=== PATIENT | female | born 1965 | race Caucasian/White ===

== ENCOUNTER 2022-07-14 08:15 | Outpatient (CLI) | payer OTHER, SELFPAY ==
[2022-07-14 18:47] LABS: Alanine Aminotransferase 31 U/L (6-35); Albumin Level 4.2 g/dL (3.5-5.1); Alkaline Phosphatase 67 U/L (38-126); Anion Gap 6 mmol/L (8-16); Aspartate Amino Transferase 43 U/L (14-36); Bilirubin,Total 0.6 mg/dL (0.2-1.3); Blood Urea Nitrogen 12 mg/dL (7-17); Calcium 8.8 mg/dL (8.4-10.2); Carbon Dioxide 29 mmol/L (22-30); Chloride 102 mmol/L (98-107); Cholesterol 136 mg/dL (0-200); Estimated Glomerular Filt Rate > 60; Glucose 69 mg/dL (65-110); HDL Direct 50 mg/dL; Potassium 3.9 mmol/L (3.4-5.0); Sodium 137 mmol/L (137-145); Triglycerides 58 mg/dL (<150)
[2022-07-14 18:58] LABS: LDL Cholesterol Direct 64 mg/dL
[2022-07-14 19:20] LABS: Hemoglobin A1C 5.5 % (<5.7)
[2022-07-14 19:59] LABS: Creatinine Urine 101.9 mg/dL
[2022-07-14 20:02] LABS: MALB Creatinine Ratio 16.5 mg/g (0-30); Microalbumin Urine Random 16.8 mg/L (0-16.7)
== END 2022-07-14 08:16 | disposition home or self-care (01) ==
LOC: ANHGOSHLAB 08:16
PROVIDERS: PCP Emergency Medicine; Visit Provider Emergency Medicine
DX: R03.0 Elevated blood-pressure reading, without diagnosis of hypertension (principal); Z00.00 Encounter for general adult medical examination without abnormal findings
CPT/HCPCS: 36415; 80053; 80061; 82043; 83036

== ENCOUNTER 2022-09-14 10:12 | Outpatient (CLI) | payer OTHER, SELFPAY ==
[2022-09-14 11:51] LABS: Toxigenic C. Diff NEGATIVE (NEGATIVE)
== END 2022-09-14 10:13 | disposition home or self-care (01) ==
LOC: ANHLAB 10:13
PROVIDERS: PCP Emergency Medicine; Visit Provider Nurse Practitioner Family
DX: R19.7 Diarrhea, unspecified (principal)
CPT/HCPCS: 87045; 87177; 87209; 87427; 87493

== ENCOUNTER 2025-03-26 22:02 | Emergency (ER) | payer OTHER, SELFPAY ==
--- NOTE | ~2025-03-26 | CT_ITS ---
CT HEAD NON-CONTRAST Clinical History: confusion Comparison: None Technique: Unenhanced axial images skull base to vertex Coronal, sagittal reformats CT images acquired with automatic exposure control for dose reduction DLP: 681 mGy-cm Findings: Sulci, ventricles: Unremarkable. No intracerebral hemorrhage. No evidence acute territorial infarct. No mass effect, midline shift. Bony calvarium intact. Visualized paranasal sinuses: Clear. Mastoid air cells: Clear. Right parietal scalp contusion. IMPRESSION: 1. No acute intracranial findings. Reviewed, dictated and finalized at location R. VERY COLLECTOR
--- OUTSIDE RECORDS SUMMARY | 2025-03-26 22:04 | XMS_ITS | Clinical Summary ---
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
--- OUTSIDE RECORDS SUMMARY | 2025-03-26 22:04 | XMS_ITS | Encounter Summary ---
Author Organization [facility] Address 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
--- OUTSIDE RECORDS SUMMARY | 2025-03-26 22:04 | XMS_ITS | Clinical Summary ---
Author Organization [facility] Address [address] [place] [address] Care Team Providers Care Contact Lens Technician Name Role Phone Mavis Gipson MD Unavailable Mi Escoto MD Primary Care Provider + Araceli Acuña MD Unavailable [phone] Allergies No known active allergies Medications ALPRAZolam (XANAX) 0.25 mg tablet Take 1 tablet (0.25 mg total) by mouth nightly as needed for anxiety. 30 tablet 9 Active mv-mn/folic ac/calcium/vit K1 (WOMEN'S 50 PLUS MULTIVITAMIN ORAL) Take 1 tablet/capsu le by mouth daily Active HAIR, SKIN AND NAILS, BIOTIN, ORAL Take 1 tablet/capsu le by mouth daily Active Active Problems Problem Noted Date Diagnosed Date Family history of colon cancer 09/13/2022 History of colon polyps 09/13/2022 Fecal urgency 09/13/2022 Actinic keratosis 06/13/2021 Routine general medical exam ination at a health care facility 12/22/2019 Regular check-up 12/12/2018 Assessment & Plan (03/03/2021 3:13 PM CDT): We discussed the DASH diet Excessive cerumen in both ear canals 12/12/2018 Assessment & Plan (12/12/2018 3:27 PM CDT): Flush and pluck Immunizations Immunization Administration Dates Next Due Influenza, Quadrivalent, Rec ombinant, Egg Free, Preservative Free, Intramuscular 03/03/2021 Influenza, Quadrivalent, Spl it, Preservative Free, Intramuscular 03/04/2020 Influenza, Trivalent, IM (MDV) 04/15/2017 Tdap 12/22/2019 Surgical History Surgery Date Site/Laterality Comments VAGINAL DELIVERY 1993, 1997 Medical History Medical History Date Comments Pneumonia 09/2014 Menopause ovarian failure Family History Medical History Relation Name Comments Stroke Father Stroke; Colon cancer Mother Cancer, colon; Cause of : Cancer, colon Breast cancer Neg Hx Deep vein thrombosis Neg Hx Ovarian cancer Neg Hx Uterine cancer Neg Hx Relation Name Status Comments Father (Age 82) Mother (Age 50) Social History Tobacco Use Types Packs/Day Years Used Date Smoking Tobacco: Never Smokeless Tobacco: Never Alcohol Use Standard Drinks/Week Comments Yes 0 (1 standard drink = 0.6 oz pur e alcohol) Humiliation, Afraid, Rape, and Kick questionnair e Answer Date Recorded Within the last year, have y ou been afraid of your partner or ex-partner? No 01/14/2020 Within the last year, have y ou been humiliated or emotionally abused in other ways by your partner or ex-partner? No Within the last year, have y ou been kicked, hit, slapped, or otherwise physically hurt by your partner or ex-partner? No 01/14/2020 Within the last year, have y ou been raped or forced to have any kind of sexual activity by your partner or ex-partner? No 01/14/2020 Social Connection and Isolation Panel Answer Date Recorded In a typical week, how many times do you talk on the phone with family, friends, or neighbors? More than three times a week 01/14/2020 How often do you get togethe r with friends or relatives? Once a week 01/14/2020 How often do you attend chur or latter day services? More than 4 times per year 01/14/2020 Do you belong to any clubs o r organizations such as spiritism groups, unions, fraternal or athletic groups, or school groups? Yes 01/14/2020 How often do you attend meet ings of the clubs or organizations you belong to? More than 4 times per year 01/14/2020 Are you , , di vorced, , never , or living with a partner? 01/14/2020 AUDIT-C Answer Date Recorded Q1: How often do you have a drink containing alc ohol? 2-4 times a month 09/28/2022 Average Number of Drinks Not on file 023 Frequency of Binge Drinking Not on file 09/11 PHQ-2 Answer Date Recorded PHQ-2 Total Score (If total score is 3 or more points, staff should administer the PHQ-9) 0 12/22/2019 [facility] - Occupational Stress Questionnaire Answer Date Recorded Do you feel stress - tense, restless, nervous, or anxious, or unable to sleep at night because your mind is troubled all the time - these days? Not at all 01/14/2020 Exercise Vital Sign Answer Date Recorde d On average, how many days pe r week do you engage in moderate to strenuous exercise (like a brisk walk)? 7 days 01/14/2020 On average, how many minutes do you engage in exercise at this level? 60 min 01/14/2020 Personal Safety Answer Date Recorded Have you ever been in or are you currently in a harmful physical or emotional relationship or is someone making you feel afraid or unsafe? 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[employer] Not on file Not on file Not o n file Obstetrics History Para Term AB IAB SAB Ectopic Multiple Livin g Live Births 3 2 2 1 1 2 2 Date Outcome GA Total Labor Labor/2nd/3rd Weight Sex Type Anes PTL Sara A1 A5 Name Clin SAB Term F Vag-S pont Living Term M Vag-S pont Living Comments Last Filed Vital Signs Vital Sign Reading Time Taken Comments Blood Pressure 124/80 06/12/2024 2:33 PM MACHINE SILK SCREEN PRINTER Pulse 69 04/10/2023 8:55 AM MACHINE SILK SCREEN PRINTER Temperature 36.2 C (97.2 F) 09/28/2022 3:40 PM CDT Respiratory Rate 20 09/28/2022 4:05 PM CDT Oxygen Saturation 97% 09/28/2022 4:05 PM CDT Inhaled Oxygen Concentration - - Weight 75.8 kg (167 lb) 06/12/2024 2:33 PM MACHINE SILK SCREEN PRINTER Height 171.5 cm (5' 7.5) 06/12/2024 2:33 PM MACHINE SILK SCREEN PRINTER Body Mass Index 25.77 06/12/2024 2:33 PM MACHINE SILK SCREEN PRINTER Plan of Treatment Health Maintenance Due Date Last Done Comments Hepatitis C Screening 1965 Hepatitis B Screening 10/12/1983 Zoster Vaccine (1 of 2) 10/12/2015 Depression Screening 12/21/2020 12/22/2019 Influenza Vaccine (#1) 2025 , 03/04/2020, 04/15/2017 Breast Cancer Screening-Mammogram 06/12/2025 06/12/2024, 02/01/2022, 01/14/2020, Additional history exists Cervical Cancer Screening 06/12/20252024, 06/12/2024, 01/14/2020 Regular Well Visit/Exam 18-64 06/12/2025 06/12/2024, 02/01/2022, 03/03/2021, Additional history exists DTaP/Tdap/Td Vaccine (2 - Td or Tdap) 12/21/2029 12/22/2019 Colon Cancer Screening-Colonoscopy 09/28/2032 09/28/2022, 03/22/2017 Colon Cancer Screening-CT Colonography Discontinued 09/28/2022, 03/22/2017 Colon Cancer Screening-DNA Stool Discontinued 09/28/2022, 03/22/2017 Colon Cancer Screening-FIT Discontinued 09/28/2022, Colon Cancer Screening-Sigmoidoscopy Discontinued 09/28/2022, 03/22/2017 Pneumococcal vaccine <65 Aged Out No longer eligible based on patient's age to complete this topic Procedures Procedure Name Priority Date/Time Associated Diagnosis Comments SCREENING MAMMOGRAM BILATERAL W KIKE Schedule Routine, Read Routine (OP Routine) 06/12/2024 3:29 PM MACHINE SILK SCREEN PRINTER Screening mammogram, encounter for HIGH RISK HPV DNA DETECTION WITH GENOTYPING Routine 06/12/2024 3:11 PM MACHINE SILK SCREEN PRINTER Well woman exam COLONOSCOPY 09/28/2022 3:06 PM CDT from Last 3 Months or Most Recently Relevant to Health Maintenance Results * Screening Mammogram Bilateral W Kike (06/12/2024 3:29 PM MACHINE SILK SCREEN PRINTER) Anatomical Region Laterality Modality Breast Bilateral Mammography Impressions 06/12/2024 3:31 PM MACHINE SILK SCREEN PRINTER BI-RADS ATLAS category (overall): 1 - Negative There is no mammographic evidence of malignancy. A 1 year screening mammogram is recommended. The patient has been or will be contacted. We recommend annual screening mammography for women at average risk of breast cancer beginning at age 40, based on guidelines of the [employer] (ACR Practice Parameter for the Performance of Screening and Diagnostic Mammography) and [employer]. For women with and elevated risk of breast cancer, please refer to the ACR Practice Parameter for specific screening recommendations. The patient will be entered into a reminder system with a target due date of 1 year for her next screening exam. Narrative 06/12/2024 3:31 PM MACHINE SILK SCREEN PRINTER Screening Mammogram Bilateral W Kike: 06/12/24 The study was acquired using full field digital technology and interpreted from soft copy. 2D digital mammographic views, as well as 3D digital tomosynthesis were performed in the CC and MLO projections. This study was resulted using Computer-Aided Detection (CAD). CLINICAL: Screening mammogram, encounter for. No relevant medical history has been documented for this patient. History of breast cancer in Neg Hx. COMPARISONS: 02/01/2022 Screening Mammogram Bilateral W Kike 01/14/2020 Screening Mammogram Bilateral W Kike 2019 Screening bilateral mammography with tomosynthesis BREAST TISSUE: The breasts are heterogeneously dense, which may obscure small masses. FINDINGS: No suspicious masses, suspicious calcifications, or other suspicious findings are seen within either breast. There has been no suspicious change. us Self Screening Mammogram IMG MAMMO PROCEDURES Fi nal Result * High Risk HPV DNA Detection with Genotyping (Molecular component) (06/12/2024 3:11 PM MACHINE SILK SCREEN PRINTER) HPV HR 16 Not Detected Not Detected [facility] Comment:Testing performed by : [facility], [address] [place]., [address] HPV HR 18 Not Detected Not Detected [facility] Comment:Testing performed by : [facility], [address] [place]., [address] HPV HR Non 16/18 Not Detected Not Detected [facility] Comment: Interpretive Data Nucleic acid amplification for detection of high-risk Human Papilloma virus (HPV) is performed by the Krystyna Andrew 6800 HPV test. This assay specifically detects HPV-16 and HPV-18 genotypes. The following HPV genotypes are detected as high-risk HPV: HPV-31, 33, 35, ,39, 45, 51, 52, 56, 58, 59, 66, and 68. This assay has been approved by the [place] Food and Drug Administration for detection of HPV in cervical specimens collected by a physician using an endocervical brush/spatula or cervical broom and placed in the ThinPrep Pap Test PreservCyt collection containers. The performance characteristics of this test have been verified by the [facility] Molecular Infectious Disease laboratory. Correlate with separately reported cytology results, as applicable. Interpretive data last revised 22 Testing performed by: [facility], [address] [place]., [address] Endocervical 06/12/2024 3:11 PM MACHINE SILK SCREEN PRINTER 06/16/2024 10:33 AM MACHINE SILK SCREEN PRINTER Narrative [facility] - 06/17/2024 4:35 AM MACHINE SILK SCREEN PRINTER Clinical history and diagnosis->screening Testing type->Screening Last menstrual period (date if known)->postmenopausal us Araceli Acuña MD LAB BODY FLUIDS AND STOOL S ORDERABLES Final Result [facility] [address] [facility] [place] [address] [facility] * COLONOSCOPY (09/28/2022 3:06 PM CDT) Anatomical Region Laterality Modality Other Narrative Procedure Note Emily Saba MD - 09/28/2022 3:06 PM CDT ENDOSCOPY LAB Patient Name: Zulma Sen Procedure Date: 09/28/2022 3:06 PM Date of : 1965 Admit Type: Outpatient Age: 56 Gender: Female Attending MD: Emily Saba M.D. Room: [facility] ENDOSCOPY ROOM 01 Note Status: Finalized Procedure: Colonoscopy Indications: High risk colon cancer surveillance: Personalhistory of colonic polyps, Family history of colon cancerin a first-degree relative before age 60 years (motherage 48), Last colonoscopy: March 2017, Incidental diarrhea noted Providers: Emily Saba M.D. Referring MD: Robin Lerma M.D. Medicines: Monitored Anesthesia Care Complications: No immediate complications. Estimated Blood Loss: Estimated blood loss was minimal. Procedure: Pre-Anesthesia Assessment: - Prior to the procedure, a History and Physicalwas performed, and patient medications, allergies and sensitivities were reviewed. The patient'stolerance of previous anesthesia was reviewed. The benefits, risks and alternatives of theprocedure and sedation were discussed and informed consentwas obtained. All questions were answered. Please referto the signed informed consent document in the medical record. The scope was passed under direct vision.The [id number] was introduced through the anusand advanced to the terminal ileum, with identificationof the appendiceal orifice and IC valve. Thecolonoscopy was performed without difficulty. The patient tolerated the procedure well. The quality of thebowel preparation was evaluated using the BBPS (BostonBowel Preparation Scale) with scores of: Right Colon = 3, Transverse Colon = 3 and Left Colon = 3 (entiremucosa seen well with no residual staining, smallfragments of stool or opaque liquid). The total BBPS score equals 9. The bowel preparation used was GoLYTELYvia split dose instruction. Findings: The perianal and digital rectal examinations were normal. The terminal ileum appeared normal. A few diverticula were found in the ascending colon. Otherwise the entire examined colon appeared normal on direct and retroflexion views. Biopsies were taken with a cold forceps for histology. Impression: - The examined portion of the ileum was normal. - Diverticulosis in the ascending colon. - Otherwise the entire examined colon is normal on direct and retroflexion views. Recommendation: - The patient will be observed post-procedure,until all discharge criteria are met. - Await pathology results. - Repeat colonoscopy in 5 years for surveillance in view of high risk family history. - Biopsy results are typically available within 7-10 days and you will be contacted with the results. If you have not recieved your results within this timeframe, please call [phone] regarding your results. - Contact Information: During normal business hours - Please call theNurse Coordinator: [phone] After hours, evening, nights, weekends and holidays- Please call the hospital multiple drill operator at and ask for the GI fellow railroad commissioner. - . Attending Participation: I personally performed the entire procedure. Electronically Signed By: Emily Saba M.D. Emily Saba M.D. 09/28/2022 3:40:48 PM Number of Addenda: 0 Note Initiated On: 09/28/2022 3:06 PM Emily Saba MD ENDOSCOPY PROCEDURES Fin al Result from Last 3 Months or Most Recently Relevant to Health Maintenance Insurance [facility] [place] [address] [facility] [employer] Advance Directives For more information, please contact: [phone] * Full Code (Latest Code Status on File) Date Activated Date Inactivated Comments 09/28/2022 1:07 PM 09/28/2022 8:27 PM Care Teams Contact Lens Technician Relationship Specialty Start Date End Date Mi Escoto MD [facility] [facility] [place] [address] PCP - General Family Medicine 06/12/24 Mavis Gipson MD [address] [facility] [address] [place] [address] Consulting Physician Obstetrics and Gynecology 02/01/22 Araceli Acuña MD [address] [place] [id number] Oxygen Equipment Technician Obstetrics and Gynecology 06/12/24
--- OUTSIDE RECORDS SUMMARY | 2025-03-26 22:04 | XMS_ITS | Encounter Summary ---
Author Organization [facility] Address 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
--- OUTSIDE RECORDS SUMMARY | 2025-03-26 22:04 | XMS_ITS | Encounter Summary ---
Author Organization [facility] Address [address] [facility] Attn: Epic Prelude ADT [place] [address] Care Team Providers Care Television Specialist Name Role Phone Unavailable Primary Care Provider Unavailabl e Encounter Details Date Type Department Care Team (Late st Contact Info) Description 12/12/1989 Outpatient Historical Emma Gillespie MD NO ADDRESS ON FILE Social History Tobacco Use Types Packs/Day Years Used Date Smoking Tobacco: Never Assessed Comments Unknown Sex and Gender Information Value Date Recorded Sex Assigned at Not on file 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
--- OUTSIDE RECORDS SUMMARY | 2025-03-26 22:04 | XMS_ITS | Encounter Summary ---
Author Organization [facility] Address 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
--- OUTSIDE RECORDS SUMMARY | 2025-03-26 22:04 | XMS_ITS | Encounter Summary ---
Author Organization [facility] Address 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
--- OUTSIDE RECORDS SUMMARY | 2025-03-26 22:04 | XMS_ITS | Encounter Summary ---
Author Organization [facility] Address 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
[2025-03-26 22:05] VITALS: BP 141/76; PULSE 77; RESP 12; TEMP 36.7; O2SAT 100
--- OUTSIDE RECORDS SUMMARY | 2025-03-27 00:51 | XMS_ITS | Encounter Summary ---
Author Organization [facility] Address 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
--- OUTSIDE RECORDS SUMMARY | 2025-03-27 00:51 | XMS_ITS | Data Portability ---
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 Pt reassured. 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 Pt reassured. no rx vs return for cosmetic LN vs discuss with [facility] for laser Lentigo, L confucianism - diagnosis reviewed. Avoid sun exposure and use sun protection. no rx vs refer for cosmetic laser per JR, pt scheduled 06/06/18 at 1:45pm with [facility]. pt informed. Not available 05/26/2018 21:28:41 03/29/2021 03/29/2021 Actinic keratosi s, L nasal bridge - precancerous diagnosis reviewed. Recommend treatment with LN to site Patient elects rtc for LN treatment with upcoming social event Seborrheic keratoses - diagnosis reviewed. Pt reassured. Discussed no treatment needed. Dermatofibroma - diagnosis reviewed. Pt reassured. Discussed no treatment needed. Benign nevi-discussed not suspicious Photoaging face Recommend strict photoprotection and sunscreen use Discussed options of retinol use on face qhs, gradual increase to qhs Recommend hyaluronic acid/ceramide moisturizer qhs fbse 1 yr Photoprotection discussed. Use of a broad-spectrum sunscreen SPF 30 or higher recommended. Not available 03/29/2021 15:11:57 06/13/2021 06/13/2021 Folliculitis, favor staph, R narbeth DIscussed diagnosis Recommend mupirocin 2% ointment BID x 1 wk Actinic keratosis - precancerous diagnosis reviewed. cryo therapy x 1 sites treated: L nasal bridge Not available 06/19/2021 22:01:40 Plan of Treatment Reminders Order Date Submit Date Provider Last Modified By Organization Details Last Modified Time Details Appointments None recorded. Lab pathology, skin 2016 017 [email or web address] [facility] (Pathology Department), [address], [place], [address], 7 12:10:43 Referral None recorded. Procedures None recorded. Surgeries None recorded. Imaging None recorded. Medication Orders mupirocin 2 % topical ointment 2021 022 TO [id number], [address] [facility], [place], [place], [id number], 15:40:58 Patient TargetsNo targets recorded. Patient Instructions Encounter Date Encounter Id Patient Instructions Last Modified By Organization Details Last Modified Time 03/29/[id number] Retinoid side effects were reviewed with emphasis on skin irritation, redness, dry skin and photosensitivity. Start 2 -3 nights per week and gradually increase to nightly if tolerated. Apply thin coating. Use gentle cleansers and emollients as needed. Not available 03/29/2021 15:12:26 Reason for Referral None Reported. Results Created Date Observation Date Name Description Value Unit Range Abnormal Flag Note LastModifiedBy Organization Detail LastModifiedTime Result Notes None recorded. Problems Name Problem SNOMED Code Status Onset Date Resolution Date Notes Provider Name and Address Organization Details Recorded Time Actinic keratosis 020763288 Active 022 Micaela Coburn MD [address] [facility], [address], [place], [address], [facility] MD 15:40:52 Problem Notes None recorded. Procedures Surgical History Date Name Laterality Status Provider Name and Address Organization Details Recorded Time 06/13/19 22 Cryosurgery aks completed Micaela Coburn MD [address] [facility], [address], [place], [address], [facility] MD 06/19/2021 22:01:52 03/15/20 17 Biopsy completed Corby Coburn MD 03/15/2017 15:21:02 Imaging Results None recorded. Procedure Notes None recorded. Medical Equipment None Reported. Allergies No known drug allergies Medications Name Sig Start Date Stop Date Status Note LastModified by Organization Details LastModified Time alprazolam 0.25 mg tablet 03/29 completed Not Available Not Available Not Available erythromyci n 5 mg/gram (0.5 %) eye ointment RIGO A SML AMT TO THE UPPER LEFT EYELID BID FOR 10 DAYS 03/29 completed Not Available Not Available Not Available mupirocin 2 % topical ointment APPLY TOPICALLY TO THE AFFECTED AREA TWICE DAILY FOR 7 TO 10 DAYS WITH FLARES active Not Available Not Available No t Available mometasone 0.1 % topical cream 05/23 completed Not Available Not Available Not Available amoxicillin 500 mg-potassiu m clavulanate 125 mg tablet TK 1 T PO BID FOR 10 DAYS 03/29 completed Not Available Not Available Not Available Vitamin active Not Available Not Avail able Not Available Suprep Bowel Prep Kit 17.5 gram-3.13 gram-1.6 gram oral solution 03/15 completed Not Available Not Available Not Available Vitals None Recorded Social History Question Answer Notes LastModified by Organizat ion Details LastModified Time Tobacco Smoking Status Never Smoker [facility] Ruvalcaba MD 03/15/2017 14:48:55 In The 14 Days Before Symptom Onset, Have You Had Close Contact With A Laboratory-confirm ed COVID-19 While That Case Was Ill? No [email or web address] Information n ot available 03/29/2021 In The 14 Days Before Symptom Onset, Have You Had Close Contact With A Person Who Is Under Investigation For COVID-19 While That Person Was Ill? No [email or web address] Information not available 03/29/2021 Have You Been To An Area Known To Be High Risk For COVID-19? No [email or web address] Information not available 03/29/2021 What Was The Date Of Your Most Recent Tobacco Screening? 03/29/2021 [email or web address] Information not available 03/29/2021 Sun Exposure Moderate Information not available 03/15/2017 Do You Use Sunscreen Routinely? Yes Information not available 03/15/2017 Tanning Bed Exposure No Information not available 03/15/2017 Sex: Unknown Functional Status Question Answer Note LastModified by Organizat ion Details LastModified Time What is your level of alcohol consumption? Occasional Information not available 03/15/2017 Mental Status None recorded. Family History Relationship Description Onset Age of this Age Resolved Age Notes LastModified by Organization Details LastModified Time Mother Malignant neoplasm of colon Not available 2016 14:48:49 Medical History Condition Response Diabetes N Bleeding Disorder N Arthritis N Hyperthyroidism N Defibrillator N Cancer N Stroke N Asthma N Hypothyroidism N Lupus N HIV/AIDS N Pacemaker N Psoriasis N Anemia N Hepatitis N Heart Disease N Hypertension N Gynecological HistoryNo gynecological history recorded. Obstetrics History GPAL:G 0 P 0 0 0 0 Past Encounters Encounter ID Performer Location Encounter Start Date Encounter Closed Date Diagnosis/Indication Diagnosis SNOMED-CT Code Diagnosis ICD10 Code Diagnosis IMO Codes Diagnosis Note [id number] Micaela Coburn MD Main Office [address] [place] [phone] 03/15/2017 14:38:12 03/15/2017 15:23:41 Neoplasm of uncertain behavior of skin 52586927 D48.5 Milia 737208325 L72.0 Melanocyti c nevus of trunk 713346601 D22.5 Senile hyperkeratosis 39 8387862 L82.1 [id number] Micaela Coburn MD Main Office [address] [place] [id number] 05/23/2018 10:33:20 05/23/2018 11:20:46 Neoplasm of uncertain behavior of skin 98637752 D48.5 Senile hyperkeratosis 39 1093244 L82.1 Lentigo 171692307 L81.4 [id number] Micaela Coburn MD Main Office [address] [place] [id number] 03/29/2021 14:39:12 03/29/2021 15:16:45 Actinic keratosis 966450517 L57.0 Senile hyperkeratosis 39 8213242 L82.1 Melanocyti c nevus of trunk 383657552 D22.5 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 03165956 D23.71 [id number] Micaela Coburn MD Main Office [address] [place] [id number] 06/13/2021 15:16:34 06/13/2021 15:39:17 Folliculitis 46237363 L73.8 Actinic keratosis 842318 007 L57.0 Health Concerns Section Related Observation LastModified by Organization Detai ls LastModified Time None Recorded Concern Status LastModified by Organization Details LastModified Time None Recorded Advance Directives Directive None Recorded Payers Insurance Date Sequence Insurance Name Policy Number Policy Womack Covered Member ID Womack Member ID Guarantor Name 06/21/2021 1 [facility] [id number] Zulma Sen [id number] Zulma Sen Notes Date Note Type Note Provider Name and Address Organization Details Recorded Time 03/15/2017 text/html ROS as noted in the HPI fbse spot L cheekraisedsince the summernot itchy no hx skin cancerno moles removed in the past. no bleeding spots, changing moles, or sores that don't want to heal. Micaela Coburn MD [address] [place] [address], [place], [address], [facility] - Micaela Coburn MD 03/17/2017 16:13:51 05/23/2018 text/html ROS as noted in the HPI spot on lower lipx 9 monthsthought it was a frickle and then it started bleeding also with spots L cheek is wondering treatment options also recommendations for morning and night creamgets dry skin on the face Micaela Coburn MD [address] [place] [address], [facility] [address], [place], [address], [facility] MD 05/26/2018 21:29:26 03/29/2021 text/html ROS as noted in the HPI COVID-19 protocol. Patient and any caregivers present screened to confirm no fever, cough, loss of taste or smell, or shortness of breath. Patient and any caregivers deny current diagnosis or pending testing of COVID-19 or recent exposure to any individual with known or current testing for COVID-19. Patient and caregivers masked while in office. full body check spot R dorsal handx not sure how longbrownnot treating spot L nasal bridgex not sure how longroughnot treating also wondering options for anti-aging creams for the face. no other bleeding spots, changing moles, or sores that don't want to heal. Micaela Coburn MD [address] [place] [address], [facility] [address], [address], [facility] MD 03/30/2021 22:13:54 06/13/2021 text/html ROS as noted in the HPI COVID-19 protocol. Patient and any caregivers present screened to confirm no fever, cough, loss of taste or smell, or shortness of breath. Patient and any caregivers deny current diagnosis or pending testing of COVID-19 or recent exposure to any individual with known or current testing for COVID-19. Patient and caregivers masked while in office. LN to [place] L nasal bridge also would like to have the nose checkedcrusting and soreness with some redness at the inside R naresshe walks outdoors in cold weather and not sure if flares with thishas had this before on the inside of the R nose with soreness and crustingno past treatment Micaela Coburn MD [address] [place] [address], [address], [place], [address], [facility] MD 06/19/2021 22:02:19 OBGyn Episode No OBEpisode recorded.
--- OUTSIDE RECORDS SUMMARY | 2025-03-27 00:51 | XMS_ITS | Encounter Summary ---
Author Organization [facility] Address 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
--- OUTSIDE RECORDS SUMMARY | 2025-03-27 00:51 | XMS_ITS | Encounter Summary ---
Author Organization [facility] Address 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
--- OUTSIDE RECORDS SUMMARY | 2025-03-27 00:51 | XMS_ITS | Clinical Summary ---
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
--- OUTSIDE RECORDS SUMMARY | 2025-03-27 00:51 | XMS_ITS | Encounter Summary ---
Author Organization [facility] Address 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
--- OUTSIDE RECORDS SUMMARY | 2025-03-27 00:51 | XMS_ITS | Encounter Summary ---
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
--- OUTSIDE RECORDS SUMMARY | 2025-03-27 00:51 | XMS_ITS | Clinical Summary ---
Author Organization [facility] Address [address] [place] [address] Care Team Providers Care Station Worker Name Role Phone Mavis Gipson MD Unavailable [phone] Mi Escoto MD Primary Care Provider + Araceli Acuña MD Unavailable [phone] Allergies No known active allergies Medications ALPRAZolam [...] How often do you attend chur or pentecostalism services? 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- [employer] Not on file Not on [...] Comments Blood Pressure 124/80 06/12/2024 2:33 PM PROPERTY INSPECTOR Pulse 69 04/10/2023 8:55 AM PROPERTY INSPECTOR Temperature 36.2 C (97.2 F) 09/28/2022 3:40 PM CDT Respiratory Rate 20 09/28/2022 4:05 PM CDT Oxygen Saturation 97% 09/28/2022 4:05 PM CDT Inhaled Oxygen Concentration - - Weight 75.8 kg (167 lb) 06/12/2024 2:33 PM PROPERTY INSPECTOR Height 171.5 cm (5' 7.5) 06/12/2024 2:33 PM PROPERTY INSPECTOR Body Mass Index 25.77 06/12/2024 2:33 PM PROPERTY INSPECTOR Plan of Treatment Health Maintenance Due Date [...] Read Routine (OP Routine) 06/12/2024 3:29 PM PROPERTY INSPECTOR Screening mammogram, encounter for HIGH RISK HPV DNA DETECTION WITH GENOTYPING Routine 06/12/2024 3:11 PM PROPERTY INSPECTOR Well woman exam COLONOSCOPY 09/28/2022 3:06 PM CDT from Last 3 Months or Most Recently Relevant to Health Maintenance Results * Screening Mammogram Bilateral W Kike (06/12/2024 3:29 PM PROPERTY INSPECTOR) Anatomical Region Laterality Modality Breast Bilateral Mammography Impressions 06/12/2024 3:31 PM PROPERTY INSPECTOR BI-RADS ATLAS category (overall): 1 - Negative There is no mammographic evidence of malignancy. A 1 year screening mammogram is recommended. The patient has been or will be contacted. We recommend annual screening mammography for women at average risk of breast cancer beginning at age 40, based on guidelines of the [employer] (ACR Practice Parameter for the Performance of Screening and Diagnostic Mammography) and [employer]. For women with and elevated risk of breast cancer, please refer to the ACR Practice Parameter for specific screening recommendations. The patient will be entered into a reminder system with a target due date of 1 year for her next screening exam. Narrative 06/12/2024 3:31 PM PROPERTY INSPECTOR Screening Mammogram Bilateral W Kike: 06/12/24 The [...] with Genotyping (Molecular component) (06/12/2024 3:11 PM PROPERTY INSPECTOR) HPV HR 16 Not Detected Not Detected [facility] Comment:Testing performed by : [facility], [address] [place]., [address] HPV HR 18 Not Detected Not Detected [facility] Comment:Testing performed by : [facility], [address] [place]., [address] HPV HR Non 16/18 Not Detected Not [...] this test have been verified by the [facility] Molecular Infectious Disease laboratory. Correlate with separately reported cytology results, as applicable. Interpretive data last revised 22 Testing performed by: [facility], [address] [place]., [address] Endocervical 06/12/2024 3:11 PM PROPERTY INSPECTOR 06/16/2024 10:33 AM PROPERTY INSPECTOR Narrative [facility] - 06/17/2024 4:35 AM PROPERTY INSPECTOR Clinical history and diagnosis->screening Testing type->Screening Last menstrual period (date if known)->postmenopausal us Araceli Acuña MD LAB BODY FLUIDS AND STOOL S ORDERABLES Final Result [facility] [address] [facility] Department [place] [address] [facility] * COLONOSCOPY (09/28/2022 3:06 PM CDT) Anatomical Region Laterality Modality Other Narrative Procedure Note Emily Saba MD - 09/28/2022 3:06 PM CDT ENDOSCOPY LAB Patient Name: Zulma Sen Procedure Date: 09/28/2022 3:06 PM Date of : 1965 Admit Type: Outpatient Age: 56 Gender: Female Attending MD: Emily Saba M.D. Room: [facility] ENDOSCOPY ROOM 01 Note Status: Finalized [...] The scope was passed under direct vision.The [id number] was introduced through the anusand advanced to [...] your results within this timeframe, please call [phone] regarding your results. - Contact Information: During normal business hours - Please call theNurse Coordinator: [phone] After hours, evening, nights, weekends and holidays- Please call the hospital slice plug cutter operator at and ask for the GI fellow production mechanic tin cans. - . Attending Participation: I personally performed the entire procedure. Electronically Signed By: Emily Saba M.D. Emily Saba M.D. 09/28/2022 3:40:48 PM Number of Addenda: 0 Note Initiated On: 09/28/2022 3:06 PM Emily Saba MD ENDOSCOPY PROCEDURES Fin al Result from Last 3 Months or Most Recently Relevant to Health Maintenance Insurance [facility] CHOICE PLUS [facility] CHOICE PLUS [facility] [place] [address] [facility] CHO[facility] PLUS Advance Directives For more information, please contact: [phone] * Full Code (Latest Code Status on File) Date Activated Date Inactivated Comments 09/28/2022 1:07 PM 09/28/2022 8:27 PM Care Teams Station Worker Relationship Specialty Start Date End Date Mi Escoto MD [facility] [facility] [place] [address] PCP - General Family Medicine 06/12/24 Mavis Gipson MD [address] [facility] [address] [place] [address] Consulting Physician Obstetrics and Gynecology 02/01/22 Araceli Acuña MD [address] [place] [address] Suction Operator Obstetrics and Gynecology 06/12/24
--- OUTSIDE RECORDS SUMMARY | 2025-03-27 00:51 | XMS_ITS | Encounter Summary ---
Author Organization [facility] Address [address] [place] [address] Care Team Providers Care Excelsior Machine Operator Name Role Phone Unavailable Primary Care Provider Unavailabl e Encounter Details Date Type Department Care Team (Late st Contact Info) Description 06/03/2003 Outpatient Historical HIS 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
--- NOTE | 2025-03-27 01:25 | ED_ITS ---
HPI - Wound/Laceration General Chief Complaint: Alcohol Stated Complaint: laceration to head Time Seen by Provider: 03/27/25 00:24 Source: patient and family () Mode of arrival: ambulatory History of Present Illness HPI narrative: Patient presents with a head laceration. She believes she fell. Has been drinking alcohol. Has a safe/sober ride. Denied pain initially and still denies pain. Tetanus status unknown. She reports having an issue with her scalp at baseline. Related Data Home Medications ?Medication ?Instructions ?Recorded ?Confirmed ?Last Taken ?Type [id number] 18 mg-FA 400 tablet PO 06/30/2208/12 Unknown History mcg-calcium 500 mg-vit K 50 mcg tablet (Women's Multivitamin) Hairs Skin and Nail Gimmies PO 08/21/24 08/21/24 Unkno wn History cholecalciferol (vitamin D3) 25 25 mcg PO DAILY 08/21/24 Unknown History mcg (1,000 unit) capsule Allergies Allergy/AdvReac Type Severity Reaction Status Date / Time No Known Allergies Allergy Verified 03/26/25 22:08 [facility] Past Medical History Medical History (Updated 03/28/25 @ 00:00 by Tano Brown) Family history of colon cancer in mother Surgical History Surgical History No history of previous surgery Family History Family History Mother FH: colon cancer Father Diabetes mellitus Hypertension Cerebrovascular accident Social History Social History (Updated 03/29/25 @ 03:12 by Stephenie Loera MD) Social History: Smoking status: Never smoker Alcohol intake: current Drinks per week: 3 Alcohol use details: beer/seltzer, ~5-6 drinks twice a month Substance use: never Substance use type: does not use Do You Feel Safe in your Home?: Yes Lack of Transportation: No Lack of Food: Never True Current Housing: I Have Housing Concerned About Future Housing: No Difficulty Paying Gas/Electric Bills: No Difficulty Paying for Meds: No Currently Unemployed: No Education: Bachelor's Degree Difficulty w/ Childcare or Family Care: No Living arrangements: with family Exam Narrative: GENERAL: Well-appearing, well-nourished, and in no acute distress. HEAD: Matted blood in hair posterior head. Washed and an abrasion is appreci ated. No appreciable laceration. Bleeding controlled. EYES: Non injected, non icteric ENT: Nares clear, no rhinorrhea or epistaxis. Gross auditory acuity intact. NECK: Supple. No meningismus. CHEST: Speaking in full sentences. No respiratory distress. HEART: Regular rate and rhythm. . ABDOMEN: Soft, nondistended. No rigidity or guarding. Not peritoneal EXTREMITIES: Normal range of motion. No lower extremity edema. SKIN: Warm, dry, no rash. NEURO: No focal deficits. Alert and oriented. Answering questions. Following commands. Slightly slurred speech though understandable PSYCH: Congruent mood and affect. Course Vital Signs Vital signs: Vital Signs Temperature 98.0 F 03/26/25 22:05 Pulse Rate 77 03/26/25 22:05 Respiratory Rate 12 03/26/25 22:05 Blood Pressure 141/76 H 03/26/25 22:05 Pulse Oximetry 100 03/26/25 22:05 Oxygen Delivery Room Air 03/26/25 22:05 Temperature 98.0 F 03/26/25 22:05 Pulse Rate 77 03/26/25 22:05 Respiratory Rate 12 03/26/25 22:05 Blood Pressure 141/76 H 03/26/25 22:05 Pulse Oximetry 100 03/26/25 22:05 Oxygen Delivery Room Air 03/26/25 22:05 MDM - Wound/Laceration MDM Narrative Medical decision making narrative: Patient presents with bleeding from posterior scalp. Believes she might have fallen though unsure. Endorses drinking alcohol. In the emergency department she is afebrile with acceptable vital signs, mild hypertension. Denies any pain. Scalp irrigated copiusly with NS and hydrogen peroxide. No laceration can be identified, only abrasion(s) Stable for discharge. Differential Diagnosis Differential diagnosis: Likely laceration, abrasion, avulsion of skin and other (intracranial hemorrhage) Imaging Data Radiologist's impression: CT Head non con stat rad: No hemorrhage, hydrocephalus, mass effect or h erniation. Bones unremarkable. Discharge Plan Discharge Clinical Impression: Abrasion of scalp, initial encounter Patient Disposition: Home Condition: Stable Instructions: Antibiotic Form, Abrasion (ED) Additional Instructions: You may start having pain. Acetaminophen/Tylenol (maximum 4000 mg per day) is safe to take with NSAIDs (ibuprofen/Motrin) for pain relief. For the abrasion, warm soapy water is fine. No need for further cleansing with hydrogen peroxide. Follow-up with your primary care physician. Return to the ED with new/worsening symptoms. Patient Language: Croatian Prescriptions: No Action cholecalciferol (vitamin D3) 25 mcg (1,000 unit) capsule 25 mcg PO DAILY Hairs Skin and Nail Gimmies PO Women's Multivitamin 18 mg-400 mcg- 500 mg-50 mcg tablet PO Follow-up/Referrals: Mi Escoto MD [Primary Care Provider, Family Practice] Stand Alone Forms: Work/School Release IP Time of Disposition: 01:37
== END 2025-03-27 02:00 | disposition home or self-care (01) ==
PROVIDERS: Emergency Provider Student in an Organized Health Care Education/Training Program; PCP Family Medicine
DX: S00.01XA Abrasion of scalp, initial encounter (principal); X58.XXXA Exposure to other specified factors, initial encounter
CPT/HCPCS: 70450; 99284; A9270